=== PATIENT | female | born 1965 | race Caucasian/White ===

== ENCOUNTER 2016-12-12 15:33 | Emergency (ER) | payer BC ==
--- NOTE | 2016-12-12 17:07 | ED ---
HPI Cardiac - HPI Summary HPI Summary: Pt here w/ "woke up not feeling well this morning". [place] exhausted and this feeling was worse with movement. Changes in head position made her feel dizzy and continue to do so. Associated sx are flushing and mild nausea. She denies chest pain/pressure, SOB, diaphoresis, jaw pain, arm pain, ab pain, LE edema, increased urination at night, dysuria. She admits to a h/o of some of these sx which she's had w/ her irregular heart rate runs in the past. She' not sure what her diagnosis was but was tested via holter monitor and placed on propranolol and has done well since. Sx are similar in quality but different in that she has no chest sx, only "head" sx and the feelings are more intense and lasting longer (typically would not linger all day). The runs of sx are about 5- 10 minutes in duration. She feels fine now sitting up right in her bed. Reports a h/o of having "head" sx when she lies flat and avoids this by sleeping w/ pillows at night. She has DM 2 and checked her glucose this morning after eating a handful of cereal - 130 (normal for her) and no improvement of sx. Has had reduced appetite all day. She also checked her BP 2 x - was 180's/100's and comparable w/ recheck. BP is good here now and we are still able to reproduce sx w/ position change. She does have a dx of HTN but propranolol has controlled this as well. Follows w/ PCP annually - just had labs checked Monday but no results yet. Asked what she did yesterday and [place] Asked if this was too much activity for her and she does not feel it was. Does admit her mouth has been dry past few weeks and she's bad at drinking fluids throughout the day. Denies caffeine and ETOH use. No smoking, no drug use. She also admits she had a weird pressure sensation when blowing her nose yesterday - no headache or ear pain and she denies URI sx of sneezing, coughing, ST, fever, chills. - History of Current Complaint Chief Complaint: EDDizziness Stated Complaint: LIGHTHEADED,NAUSEA,HIGH BLOOD PRESSURE Time Seen by Provider: 12/12/16 16:36 Hx Obtained From: Patient Pain Intensity: 0 - Allergy/Home Medications Allergies/Adverse Reactions: Allergies Allergy/AdvReac Type Severity Reaction Status Date / Time Latex Allergy Itching Verified 12/12/16 16:09 Sulfa Antibiotics Allergy WEAK, Verified 12/12/16 16:09 LIGHT HEADED PMH/Surg Hx/FS Hx/Imm Hx Previously Healthy: Yes Endocrine/Hematology History: Reports: Hx Diabetes - TYPE 2, Hx Anemia - HX OF IN THE PAST, NONE NOW Denies: Hx Anticoagulant Therapy, Hx Blood Disorders, Hx Thyroid Disease Cardiovascular History: Reports: Hx Hypertension - propranolol, Other Cardiovascular Problems/Disorders - arrythmia of unknown dx - treated w/ propranolol Denies: Hx Aneurysm, Hx Angina, Hx Atrial Fibrillation, Hx Cardiac Arrest, Hx Congenital Heart Disease, Hx Congestive Heart Failure, Hx Coronary Artery Disease, Hx Deep Vein Thrombosis, Hx Hypercholesterolemia, Hx Myocardial Infarction History: Reports: Hx Kidney Stones - YEARS AGO - PASSED Sensory History: Reports: Hx Contacts or Glasses - GLASSES Denies: Hx Hearing Aid Opthamlomology History: Reports: Hx Contacts or Glasses - GLASSES Neurological History: Reports: Other Neuro Impairments/Disorders - OCCASIONAL DIZZINESS SHE R/T DIABETES - Surgical History Surgery Procedure, Year, and Place: 1982 ECTOPIC , [facility] [place] SECTION X 2 , [facility] [place]. 2000 REMOVAL BREAST LUMP, [facility] [place]. 2003 C SECTION, [place] Hx Anesthesia Reactions: Yes - VOMITING WITH GAS USED Infectious Disease History: Yes Infectious Disease History: Denies: Traveled Outside the [place] in Last 30 Days - Family History Known Family History: Positive: Cardiac Disease - mom - CAD in 80's; GM - CVA in "older years" - Social History Occupation: Employed Full-time - school system Lives: With Family - male partner Alcohol Use: None Hx Substance Use: No Substance Use Type: Reports: None Hx Tobacco Use: No Smoking Status (MU): Never Smoked Tobacco Review of Systems Positive: Fatigue. Negative: Fever, Chills Positive: Blurred Vision - occasionally - not worse today. Negative: Photophobia, Diplopia, Drainage, Erythema ENT: Negative Negative: Epistaxis, Dental Pain, Sore Throat, Ear Ache, Nasal Discharge Cardiovascular: Negative Negative: Palpitations, Chest Pain Respiratory: Negative Negative: Shortness Of Breath, Cough Positive: Nausea - intermittent; decreased appetite. Negative: Abdominal Pain, Vomiting, Diarrhea Positive: no symptoms reported Musculoskeletal: Negative Skin: Negative Neurological: Other - see HPI Negative: Headache, Weakness, Paresthesia, Numbness, Syncope, Slurred Speech Psychological: Normal All Other Systems Reviewed And Are Negative: Yes Physical Exam Triage Information Reviewed: Yes Vital Signs On Initial Exam: Initial Vitals Temp Pulse Resp BP Pulse Ox 98.3 F 66 20 167/88 98 12/12/16 15:36 12/12/16 15:36 12/12/16 15:36 12/12/16 15:36 12/12/16 15:36 Vital Signs Reviewed: Yes Appearance: Positive: Well-Appearing, No Pain Distress, Obese Skin: Positive: Warm, Dry Head/Face: Positive: Normal Head/Face Inspection - sinuses NTTP. Negative: TMJ Tenderness, Scalp Eyes: Positive: EOMI, PATRICE, Conjunctiva Clear. Negative: Conjunctiva Inflammed , Discharge ENT: Positive: Normal ENT inspection, Hearing grossly normal, Pharynx normal, TMs normal. Negative: Pharyngeal erythema, Nasal congestion, Nasal drainage, Tonsillar swelling, Tonsillar exudate, Muffled/hoarse voice Dental: Negative: Abscess @ Neck: Positive: Supple, Nontender, No Lymphadenopathy - no palpable thyroid mass , NTTP Respiratory/Lung Sounds: Positive: Clear to Auscultation, Breath Sounds Present. Negative: Rales, Rhonchi, Stridor, Wheezes, Unable to speak in full sentences, Fatigue Cardiovascular: Positive: Normal, RRR, Pulses are Symmetrical in both Upper and Lower Extremities, S1, S2. Negative: Murmur, Rub, Leg Edema Left, Leg Edema Right Abdomen Description: Positive: Nontender, No Organomegaly, Soft. Negative: Pulsatile Mass Bowel Sounds: Positive: Present Musculoskeletal: Positive: Normal, Strength/ROM Intact Neurological: Positive: Sensory/Motor Intact, Alert, Oriented to Person Place, Time, CN Intact II-III, [place] Test - pt reports dizziness and nausea with Lt and Rt sides - occurs quicker on Lt than Rt - mild horizontal nystagmus ; appears scared and near tears when she moves into both of these positions - feels better returning to upright position, Facial Symmetry, Speech Normal. Negative: Pronator Drift Present Psychiatric: Positive: Normal - [place] Coma Scale Best Eye Response: 4 - Spontaneous Best Motor Response: 6 - Obeys Commands Best Verbal Response: 5 - Oriented Coma Scale Total: 15 Diagnostics - Vital Signs Vital Signs Temp Pulse Resp BP Pulse Ox 12/12/16 16:26 58 149/72 12/12/16 16:06 98.3 F 58 12 135/81 98 12/12/16 16:04 135/81 12/12/16 15:36 98.3 F 66 20 167/88 98 - Laboratory Result Diagrams: 12/12/16 17:20 12/12/16 17:20 Lab Statement: Any lab studies that have been ordered have been reviewed, and results considered in the medical decision making process. Re-Evaluation - Re-Evaluation First Eval Change: Improved - dizziness went away after taking meclizine Disposition - Course Course Of Treatment: Pt presents w/ dizziness w/ head movements and flushing sensation since this morning. Due to her h/o cardiac rhythm issues, HTN and DM, cardiac testing performed and negative for acute pathology. Her [place] Pyke is positive - Lt > Rt. She had improvement of sx w/ meclizine and advised to f/ u w/ PCP for further review. She agrees w/ plan and will return to ED if danger s/sx present. - Diagnoses Provider Diagnoses: Vertigo Discharge - Discharge Plan Condition: Stable Disposition: HOME Prescriptions: Meclizine TAB* [Antivert 12.5 TAB*] 25 mg PO TID PRN #12 tab PRN Reason: Vertigo Patient Education Materials: Vertigo (ED) Referrals: Davis Valladares MD [Primary Care Provider] - Additional Instructions: You appear to have vertigo. The cause is unknown however there is high clinical suspicion for BPPV - Benign Paraoxysmal Positional Vertigo. You were given a medication to reduce symptoms however it is important that you follow-up with your PCP to also recheck your heart rhythm issue and if necessary refer you to vestibular therapy. *If you develop weakness, headache, visual change, numbness, neck pain/stiffness , fever, chills, chest pain, shortness of breath, abdominal pain, vomiting, return to ED
[2016-12-12 17:31] LABS: Hematocrit 42 % (35-47); Hemoglobin 14.1 g/dl (12.0-16.0); Mean Corpuscular HGB Conc 34 g/dl (31-36); Mean Corpuscular Hemoglobin 29 pg (27-31); Mean Corpuscular Volume 85 fL (80-97); Mean Platelet Volume 9 um3 (7.4-10.4); Red Blood Count 4.88 10^6/ul (4.0-5.4); Red Cell Distribution Width 14 % (10.5-15); White Blood Count 8.3 10^3/ul (3.5-10.8)
[2016-12-12 17:49] LABS: Albumin 3.5 g/dL (3.2-5.2); C Reactive Protein 20.06 mg/L (< 5.00); EGFR African American 155.2 (>60); EGFR Non-African American 120.7 (>60); Globulin 3.8 g/dL (2-4); Magnesium 1.8 mg/dL (1.9-2.7); Potassium 3.6 mmol/L (3.5-5.0); Total Bilirubin 0.5 mg/dL (0.2-1.0); Total Protein 7.3 g/dL (6.4-8.9)
[2016-12-12 17:59] LABS: Urine Bacteria Absent (Absent); Urine Bilirubin Negative (Negative); Urine Glucose Negative (Negative); Urine Nitrite Negative (Negative)
--- NOTE | 2016-12-12 18:16 | RAD ---
Indication: Fatigue and dizziness. Single frontal view of the chest performed at 1720 hours was reviewed. No priors are available. No mediastinal shift is noted. Heart is of normal size and configuration. Lung fernando appear clear. IMPRESSION: NO ACTIVE CARDIOPULMONARY DISEASE IS NOTED.
[2016-12-12 18:37] LABS: TSH (Thyroid Stimulating Horm) 1.6 mcIU/mL (0.34-5.60)
[2016-12-12] MEDS ORDERED: Meclizine TAB* 12.5 MG PO ONE (19:45)
[2016-12-12 20:59] VITALS: BP 125/58
--- NOTE | 2016-12-17 13:52 | ED ---
Progress - Progress Note Progress Note: Pt's urine cx reveals 1-10,000 strep group B - no urinary sx at time of appt. No fever and no WBC's on labs. This does not require anbx. Will fwd to PCP. Re-Evaluation - Re-Evaluation First Eval Change: Improved - dizziness went away after taking meclizine Course/Dx - Course Course Of Treatment: Pt presents w/ dizziness w/ head movements and flushing sensation since this morning. Due to her h/o cardiac rhythm issues, HTN and DM, cardiac testing performed and negative for acute pathology. Her [place] Pyke is positive - Lt > Rt. She had improvement of sx w/ meclizine and advised to f/ u w/ PCP for further review. She agrees w/ plan and will return to ED if danger s/sx present. - Diagnoses Provider Diagnoses: Vertigo
== END 2016-12-12 21:07 | disposition home or self-care (01) ==
LOC: ED 15:33
DX: R42 Dizziness and giddiness (principal); R53.83 Other fatigue; H53.8 Other visual disturbances
CPT/HCPCS: 36415; 71010; 80053; 81003; 81015; 83605; 83735; 83880; 84443; 84484; 85025; 85610; 85730; 86140; 87077; 87086; 93005; 99284; A9270-GY